=== PATIENT | male | born 1950 | race Caucasian/White ===

== ENCOUNTER → 2019-10-14 07:41 | Outpatient (CLI) | payer MEDICARE, OTHER, SELFPAY ==
--- NOTE | 2019-10-14 07:45 | CT_ITS ---
STUDY: CT SCAN OF THE LOWER EXTREMITY RIGHT REASON FOR EXAM: Male, 69 years old. RT KNEE OSTEOARTHRITIS, REBEKA RADIATION DOSAGE (If Supplied By Facility): CTDIvol = ( 38.00 ) mGy, DLP = ( 2291.97 ) mGycm. Individualized dose optimization techniques were used for this CT.? TECHNIQUE: Multiple axial tomographic images of the right hip joint, knee joint and right ankle were obtained without intravenous contrast administration. Sagittal and coronal reconstruction was obtained as well. COMPARISON: None. FINDINGS: Mild degree of osteoarthritis of the right hip joint. Small calcification overlying the greater trochanter most likely secondary to bursitis. Marked degree of the joint space narrowing with chondrocalcinosis of the medial compartment of the knee joint. No evidence of joint effusion. Mild degree of the joint space narrowing and chondrocalcinosis of the lateral compartment. The ankle joint is unremarkable. CT/Extremity Lower without Contra IMPRESSION: Marked degree of osteoarthritis and chondrocalcinosis of the medial compartment of the knee joint. Moderate degree of joint space narrowing with chondrocalcinosis of the lateral knee joint. No significant joint effusion is seen. Electronically Signed: Carloz Ferro, at 11:19 EST , Service support ,
== END ==
PROVIDERS: Referring Provider Orthopaedic Surgery; Visit Provider Orthopaedic Surgery
DX: M21.161 Varus deformity, not elsewhere classified, right knee (principal); M17.11 Unilateral primary osteoarthritis, right knee
CPT/HCPCS: 73700

== ENCOUNTER 2019-11-04 05:23 | Observation (INO) | payer MEDICARE, OTHER, SELFPAY ==
[2019-10-14 08:57] VITALS: BP 116/78; PULSE 69; RESP 16; TEMP 36.8; O2SAT 98; BMI 36.3
--- NOTE | 2019-10-14 09:42 | SDCEKG_ITS ---
Test Reason : Blood Pressure : / mmHG Vent. Rate : 070 BPM Atrial Rate : 070 BPM P-R Int : 210 ms QRS Dur : 092 ms QT Int : 382 ms P-R-T Axes : 045 024 031 degrees QTc Int : 412 ms Sinus rhythm with 1st degree A-V block Otherwise normal ECG Confirmed by SUZY CASAREZ, YULY ([id number]), rewrite editor ANNA GERARD ([id number]) on 10/16/2019 9:05:10 AM Referred By: Cortes Barlow Confirmed By:YULY ALMONTE MD
[2019-10-14 10:02] LABS: Absolute Lymphocyte Count 1.63 X10^3/uL (0.83-4.51); Absolute Neutrophil Count 5.3 X10^3/uL (2.0-7.7); Basophil# 0.04 X10^3/uL; Basophil% 0.5 % (0-1); Eosinophil# 0.11 X10^3/uL; Eosinophils% 1.4 % (0-5); Hematocrit 45.9 % (40-54); Hemoglobin 15.5 g/dL (13.0-16.5); Lymphocyte # 1.63 X10^3/ul (4.0); Lymphocyte % 20.5 % (19-41); Mean Corp Hgb Conc 33.8 g/dL (32-36); Mean Corpuscular Hgb 31.3 pg (27.0-32.0); Mean Corpuscular Volume 92.5 fL (80-94); Monocyte# 0.91 X10^3/uL; Monocyte% 11.4 % (0-10); NRBC Flagged by Analyzer 0 % (0-5); Neutrophil # 5.26 X10^3/uL (2.7-7.7); Neutrophil % 65.9 % (47-70); Platelet Count 251 K/mm3 (150-450); RBC Distribution Width CV 13.2 % (11.6-14.6); RBC Distribution Width SD 44.9 fl (35.1-43.9); Red Blood Count 4.96 M/mm3 (4.6-6.2)
[2019-10-14 10:05] LABS: Prothrombin Time (Protime)PT. 12.8 SECONDS (11.7-14.9)
[2019-10-14 10:06] LABS: Partial Thromboplast Time 28.2 Seconds (24.1-36.2)
[2019-10-14 10:25] LABS: AST(SGOT) 20 U/L (15-37); Alanine Aminotransfer ALT/SGPT 38 U/L (16-61); Albumin, Serum 3.9 g/dL (3.2-5.0); Alkaline Phosphatase 51 U/L (45-117); Anion Gap 5 (5-15); BUN 22 mg/dL (7-18); BUN/Creat Ratio 18.3 RATIO (10-20); Bilirubin, Direct 0.13 mg/dL (0.00-0.30); Calcium,Total 9.8 mg/dL (8.5-10.1); Chloride 107 mmol/L (98-107); EST Glomerular Filtration Rate 64 mL/min (>60); Est Glom Filt Rate - Afr Amer 78 mL/min (>60); Estimated Creatinine Clearance 59.73 ml/min; Globulin 3.7 g/dL (2.2-4.2); Glucose 120 mg/dL (74-106); Protein, Total 7.6 g/dL (6.4-8.2); Sodium Level 138 mmol/L (136-145)
[2019-10-14 10:26] LABS: Hemoglobin A1c 6.7 % (4.2-6.3)
[2019-11-04] VITALS (14 sets, daily range): BP systolic 86–128; BP diastolic 47–90; PULSE 56–80; RESP 16–18; TEMP 36.3–37.1; O2SAT 97–100; BMI 34.3
[2019-11-04] MEDS: Lactated Ringers 1,000 ML 100 ML IV ×3 (06:09→13:55)
[2019-11-04] MEDS: Acetaminophen 500 MG Tablet 1000 MG PO ×3 (06:10→22:25)
[2019-11-04] MEDS: Gabapentin 600 MG Tablet PO (06:10)
[2019-11-04 06:35] LABS: Bedside Glucose 259 mg/dL (70-110)
[2019-11-04] MEDS: Insulin Lispro 100 UNIT/ML INSULN.PEN SC (06:43)
[2019-11-04 06:44] LABS: Magnesium 1.8 mg/dL (1.6-2.6)
[2019-11-04] MEDS: Cefazolin 2 GM in 0.9% Normal Saline 100 ML IV (07:15)
--- NOTE | 2019-11-04 07:15 | KNEE_PTH ---
PATIENT: GENE MARC LOC: MS3 U#:[id number] AGE/SX: 69/M ROOM: MO324 RE11/04/[address]: Dr. Cortes Barlow DO : 1950 BED: 1 DIS: 11/05/2019 SPEC #: [id number] RECD: 11/04/19 10:30 STATUS: ROCCO RETorrie #: [id number] EN: 11/04/19 07:[address]: Cortes Barlow DEPT: SURGICAL PATHOLOGY RECD BY: Travis Remy ENTERED: 11/04/19 10:49 SP TYPE: TOTAL KNEE OTHR DR: Dr. Bree Baltazar, Tissues: Knee, NOS Procedures: Decalcification bone/plaque Surgery Specimen Level IV HEADER OPERATION: Total knee replacement, robotic arm assist PRE-OP DIAGNOSIS: Unilateral primary osteoarthritis right knee TISSUE SUBMITTED: Right knee bone MICROSCOPIC DIAGNOSIS Bone and soft tissue of right knee, total knee resection: Consistent with degenerative joint disease. Soft tissue with crystals consistent with pseudogout. AM:padmini 11/07/19 MICROSCOPIC DESCRIPTION Slides are reviewed. GROSS DESCRIPTION Received is one container designated bone and soft tissue right knee. The specimen consists of multiple fragments of altman-yellow bone measuring in aggregate 15 x 10 x 1 cm. Also in the specimen container are multiple fragments of yellow-white soft tissue measuring in aggregate 3 x 2 x 0.7 cm. The bony articular surfaces show eburnation and osteophyte formation. Senior Account Executive sections are submitted in two cassettes as follows: 1 - soft tissue, 2 - bone after decalcification. / AM:padmini 11/04/19 TC:5 CPT: 58915, 76939
--- NOTE | 2019-11-04 07:30 | RAD_ITS ---
EXAM DESCRIPTION: Right knee CLINICAL HISTORY: 69 years Male, post op right knee replacement COMPARISON: Previous CT scan of the right knee obtained on 10/14/2019 FINDINGS: Studies of the right knee in 2 projections shows a total right knee prosthesis in place in excellent anatomic position and alignment. RAD/Knee 1 or 2 Views IMPRESSION: A total right knee prosthesis is noted in good position and alignment. Electronically Signed: Hill Rodriguez, at 10:03 EST Tel , Service support ,
[2019-11-04 09:31] LABS: Bedside Glucose 97 mg/dL (70-110)
[2019-11-04 12:01] LABS: Bedside Glucose 146 mg/dL (70-110)
[2019-11-04] MEDS: Senna/Docusate Sodium 1 Tablet 2 TABLET PO ×2 (12:08→22:25)
[2019-11-04] MEDS: Aspirin 81 MG TAB.CHEW PO ×2 (12:08→18:30)
[2019-11-04] MEDS: Lisinopril 20 MG Tablet PO ×2 (12:09→22:25)
[2019-11-04] MEDS: metFORMIN HCl 500 MG Tablet PO (12:09)
[2019-11-04] MEDS: Multivitamins,Therapeutic Tablet 1 TABLET PO (12:09)
[2019-11-04] MEDS: hydroCHLOROthiazide 25 MG Tablet PO ×2 (12:09→22:26)
[2019-11-04] MEDS: oxyCODONE 5 MG Tablet PO ×2 (12:15→16:24)
--- NOTE | 2019-11-04 14:08 | PCM.OPRPT ---
Report of Operation Date of Procedure: 11/04/19 Pre-Operative Diagnosis: OA right knee Post-Operative Diagnosis: same Surgery/Procedure Performed:: Right TKR -- robotically assisted electronic commerce specialist: Shorty Silva Type of Anesthesia:: Spinal Anesthesiologist: Jeromy Bradley Estimated Blood Loss (mL): minimal - Admit VTE Documentation VTE Present on Admission: No VTE Mechan Device Prophylaxis: SCD's, Thigh High ALFREDO Hose VTE Pharm Prophylaxis ordered?: Yes
[2019-11-04] MEDS: Cefazolin 1 GM/50 ML BAG IV ×2 (15:06→22:25)
[2019-11-04 18:31] LABS: Bedside Glucose 90 mg/dL (70-110)
[2019-11-04] MEDS: Ensure Surgery 237 ML LIQUID PO (20:24)
[2019-11-04] MEDS: Atorvastatin Calcium 10 MG Tablet PO (22:25)
[2019-11-05] MEDS: Lactated Ringers 1,000 ML 100 ML IV (00:35)
[2019-11-05] MEDS: oxyCODONE 5 MG Tablet PO ×3 (03:13→13:02)
[2019-11-05 03:34] VITALS: BP 115/60; PULSE 76; RESP 18; TEMP 36.9; O2SAT 97
[2019-11-05] MEDS: Acetaminophen 500 MG Tablet 1000 MG PO ×2 (05:30→13:02)
[2019-11-05] MEDS: Ensure Surgery 237 ML LIQUID PO (05:30)
[2019-11-05 07:07] LABS: Hematocrit 40.7 % (40-54); Hemoglobin 13.4 g/dL (13.0-16.5); Mean Corp Hgb Conc 32.9 g/dL (32-36); Mean Corpuscular Hgb 31.1 pg (27.0-32.0); Mean Corpuscular Volume 94.4 fL (80-94); Mean Platelet Vol. 9.8 fl (6.2-12.0); Platelet Count 208 K/mm3 (150-450); RBC Distribution Width CV 13.4 % (11.6-14.6); RBC Distribution Width SD 46.6 fl (35.1-43.9); Red Blood Count 4.31 M/mm3 (4.6-6.2); White Blood Count 11.2 K/mm3 (4.4-11.0)
[2019-11-05 07:42] LABS: Anion Gap 7 (5-15); BUN 20 mg/dL (7-18); BUN/Creat Ratio 15.6 RATIO (10-20); Calcium,Total 8.9 mg/dL (8.5-10.1); Chloride 104 mmol/L (98-107); Creatinine, Serum 1.28 mg/dL (0.70-1.30); EST Glomerular Filtration Rate 60 mL/min (>60); Est Glom Filt Rate - Afr Amer 72 mL/min (>60); Estimated Creatinine Clearance 59.65 ml/min; Glucose 181 mg/dL (74-106); Potassium 4.1 mmol/L (3.5-5.1); Sodium Level 137 mmol/L (136-145)
--- NOTE | 2019-11-05 07:49 | PCM.PN.ORT ---
Subjective: Patient sitting at bedside eating breakfast. Patient states pain is very well managed. Patient denies chest pain, shortness breath, calf pain, nausea vomiting. Patient has no other complaints and states he is ready for discharge home. Patient states he will be doing his postop rehab at [facility] Objective: Dressing is clean dry intact. Negative signs and symptoms of DVT. Vital signs and labs all reviewed and are stable. Patient has good flexion-extension of the ankle and foot of the operative leg. Patient has limited motion of the knee secondary to pain. Patient is in no respiratory distress, speaking in full sentences. - Physical Exam Vitals/I&O's: Vital Signs Temp Pulse Resp BP Pulse Ox 98.5 F 76 18 115/60 97 11/05/19 03:34 11/05/19 03:34 11/05/19 03:34 11/05/19 03:34 11/05/19 03:34 Oxygen Delivery Method Room Air Weight: 111.7 kg Body Mass Index (BMI) 34.3 Finger Stick Blood Glucose 97 Intake and Output for Last 24 Hours 11/03/19 11/04/19 11/05/19 23:59 23:59 23:59 Intake Total 2821.67 / 2821.67 640 / 640 Output Total 360 / 360 450 / 450 Balance 2461.67 / 2461.67 190 / 190 General: Alert, Oriented x3, Cooperative HEENT: PERRLA Oral: Moist Mucosa Neurological: Cranial nerves II-XII grossly intact Psych/Mental Status: Normal Affect, Alert and oriented to time, place, person, mood and affect Laboratory Results 11/04/19 09:28: POC Glucose 97 11/04/19 11:58: POC Glucose 146 H 11/04/19 17:45: POC Glucose 90 11/05/19 06:46: WBC 11.2 H, RBC 4.31 L, Hgb 13.4, Hct 40.7, MCV 94.4 H, MCH 31.1, MCHC 32.9, RDW Std Deviation 46.6 H, RDW Coeff of Yancy 13.4, Plt Count 208, MPV 9.8 11/05/19 06:46: Sodium 137, Potassium 4.1, Chloride 104, Carbon Dioxide 26.0, Anion Gap 7, BUN 20 H, Creatinine 1.28, Estim Creat Clear Calc 59.65, Est GFR (MDRD) Af Amer 72, Est GFR (MDRD) Non-Af 60, BUN/Creatinine Ratio 15.6, Glucose 181 H, Calcium 8.9 Current Medications Acetaminophen (Tylenol) 1,000 mg PO Q8 [facility] Last Admin: 11/05/19 05:30 Dose: 1,000 mg Documented by: [facility]ir[facility] ([facility]in, Baby) [facility] Admin: 11/04/19 18:30 Dose: 81 mg Documented by: Atorvastatin Calcium (Lipitor) 10 mg PO QHS [facility] Last Admin: 11/04/19 22:25 Dose: 10 mg Documented by: Enteral Nutritional Formula (Ensure Surgery) 237 ml PO 0600,1300,2000 [facility] Last Admin: 11/05/19 05:30 Dose: 237 ml Documented by: Hydrochlorothiazide (Hctz) 25 mg PO BID [facility] Last Admin: 11/04/19 22:26 Dose: 25 mg Documented by: Sodium Chloride () 250 mls @ 15 mls/hr IV .[id number] PRN PRN Reason: Saline Flush Sodium Chloride () 250 mls @ 15 mls/hr IV .[id number] PRN PRN Reason: Additional IVPB Infusion Insulin Human Lispro (Humalog Kwikpen (Bkc)) 1 - 6 unit SC Q4H PRN PRN; Protocol PRN Reason: BG>/= 180, SEE PROTOCOL Last Admin: 11/04/19 06:43 Dose: 2 units Documented by: Lisinopril (Zestril) 20 mg PO BID [facility] Last Admin: 11/04/19 22:25 Dose: 20 mg Documented by: Metformin HCl (Glucophage) [facility] Last Admin: 11/04/19 12:09 Dose: 500 mg Documented by: Multivitamins (Multivitamin) 1 tablet PO DAILY@0800 [facility] Last Admin: 11/04/19 12:09 Dose: 1 tablet Documented by: Ondansetron HCl (Zofran) 4 mg IV Q8H PRN PRN PRN Reason: NAUSEA Oxycodone HCl (Oxyir) 5 - 10 mg PO Q4H PRN PRN PRN Reason: Pain Score 4-10/10 Last Admin: 11/05/19 07:35 Dose: 10 mg Documented by: Promethazine HCl (Phenergan) 12.5 mg IM Q6H PRN PRN; Protocol PRN Reason: NAUSEA/VOMITING Senna/Docusate Sodium (Senokot-S, Danielle-Colace) 2 tablet PO BID [facility] Last Admin: 11/04/19 22:25 Dose: 2 tablet Documented by: Sodium Chloride () 10 - 40 ml IV UD PRN PRN Reason: SALINE FLUSH Medical Necessity - Tobacco Use Smoking Status: Former smoker Assessment/Plan Status post right total knee arthroplasty Plan 1. Continue all pain medications as prescribed 2. Continue physical therapy, weight-bear as tolerated with walker 3. Aspirin 81 mg 1 p.o. every 12 hours x30 days for postop DVT prophylaxis 4. Encourage incentive spirometry 5. Discharge home today 6. Continue outpatient physical therapy at [facility] 7. Follow-up as scheduled, see pink sheet.
--- NOTE | 2019-11-05 08:01 | DCINST_ITS ---
Discharge Diet: No Restrictions Discharge Activity: May Not Drive, May Shower, Use Walker May shower in (days): 3 Ice area for (Minutes): 20 - each hour while awake. Weight Bearing Status: Weight bearing as tolerated Elevate: Operative Extremity Additional Activity Instructions:: Wear elastic stockings for 2 weeks after your surgery. Call your doctor if your incision/area has: Continuous Slow Oozing, Sudden Increased Bleeding, Increased Pain/ Swelling, Increased Redness, Foul Smelling Discharge Call your doctor if you observe: Fever of 101 or Higher, Coldness, Increased Pain - in extremity, Numbness or Tingling, Change in Color, Calf discomfort, Uncontrolled pain Change Dressing in (Days):: 1 - and daily as needed. Cleanse incision/area with: Soap & Water Allergies/Adverse Reactions: Allergies No Known Allergies Allergy (Verified 11/04/19 05:55) Medications to take at Discharge Cinnamon Bark [Cinnamon] 2,000 mg PO DAILY 10/14/19 Lisinopril/Hydrochlorothiazide [Lisinopril-Hctz 20-25 mg Tab] 1 ea PO BID 10/14/19 Metformin HCl 500 mg PO DAILY 10/14/19 Multivitamin [Multiple Vitamins] 1 ea PO DAILY 10/14/19 Simvastatin 20 mg PO QHS 10/14/19 Acetaminophen [Tylenol] 1,000 mg PO Q8 #90 tab 11/05/19 Aspirin [Aspirin, Baby] 81 mg PO BIDCM #60 tab.chew 11/05/19 Oxycodone [Oxyir] 5 - 10 mg PO Q4H PRN PRN 7 Days #84 tablet 11/05/19 The following prescriptions were given: Aspirin [Aspirin, Baby] 81 mg PO BIDCM #60 tab.chew Transmission Status: Pending to [facility]/pharmacy #[id number] Oxycodone [Oxyir] 5 - 10 mg PO Q4H PRN PRN 7 Days #84 tablet PRN Reason: Pain Score 4-10/10 Transmission Status: Received by [facility]pharm[facility] #[id number] Acetaminophen [Tylenol] 1,000 mg PO Q8 #90 tab Transmission Status: Pending to [id number] Primary Care Physician: Bree Baltazar DO [Primary Care Provider] - Test Results: Test results from this visit will be discussed in further detail at your follow- up appointment, if applicable. Please Follow Up With: Shorty Silva PA-C When: as scheduled see pink sheet
[2019-11-05] MEDS: Multivitamins,Therapeutic Tablet 1 TABLET PO (08:05)
[2019-11-05] MEDS: Aspirin 81 MG TAB.CHEW PO (08:05)
[2019-11-05] MEDS: metFORMIN HCl 500 MG Tablet PO (08:05)
[2019-11-05] MEDS: Senna/Docusate Sodium 1 Tablet 2 TABLET PO (08:12)
[2019-11-05] MEDS: hydroCHLOROthiazide 25 MG Tablet PO (08:13)
[2019-11-05] MEDS: Lisinopril 20 MG Tablet PO (08:13)
[2019-11-05 09:34] VITALS: BP 113/57; PULSE 87; RESP 18; TEMP 37; O2SAT 95
--- NOTE | 2019-11-05 10:40 | CASEMGMT ---
RN SHARON Face to Face with patient for initial transition planning/care coordination assessment. RN CM introduced self and role at [facility]. Patient sitting, alert and oriented. Patient willing to participate in assessment and is able to answer all questions appropriately. Care providers, pharmacy, and demographics verified. Patient wishes to discharge home and is scheduled for outpatient therapy at [facility]. Patient states he has no further needs or concerns at this time. CM to follow for discharge planning needs that may arise. PCP: Giovanny Specialists: ananda Barlow [facility] Insurance: [facility] Prescription Benefit: yes Living Will/HPOA: none LNOK: Living Arrangements: Patient lives with in 2 story house with first floor setup temporally. Patient independent at home prior to surgery. Transportation: DME/HHC: patient has shower chair, cane, walker, cpap at home. Outpatient therapy is setup for Monday at [facility]. Disposition Plan: Patient to discharge home with outpatient therapy, family support, and follow-up plans in place. Aundrea PLEITEZ, RN, CM
== END 2019-11-05 15:10 | disposition home or self-care (01) ==
LOC: MS3 11-05 09:35 → ACINP 11-05 09:51 → MS3 11-05 09:51
PROVIDERS: Anesthesiology; Admitting Provider Orthopaedic Surgery; Referring Provider Orthopaedic Surgery; Visit Provider Orthopaedic Surgery
PROC: 0SRC0JZ Replacement of Right Knee Joint with Synthetic Substitute, Open Approach (ICD-10-PCS; CPT 27447; principal; 2019-11-04 06:45)
DX: M17.11 Unilateral primary osteoarthritis, right knee (principal); I10 Essential (primary) hypertension; E78.00 Pure hypercholesterolemia, unspecified; G47.30 Sleep apnea, unspecified; E66.9 Obesity, unspecified; M21.161 Varus deformity, not elsewhere classified, right knee; Z68.35 Body mass index [BMI] 35.0-35.9, adult; Z71.3 Dietary counseling and surveillance; Z79.82 Long term (current) use of aspirin; Z79.84 Long term (current) use of oral hypoglycemic drugs; Z79.899 Other long term (current) drug therapy; Z87.891 Personal history of nicotine dependence; E11.9 Type 2 diabetes mellitus without complications; I44.0 Atrioventricular block, first degree
CPT/HCPCS: 01400; 27447; 64447; S2900; 36415; 73560; 80048; 80076; 82962; 83036; 83735; 85025; 85027; 85610; 85730; 87081; 88305; 88311; 93005; 96361; 96365; 96366; 97110; 97116; 97161; 97166; 97530; 97535; 99218; 99251; C1776; J7120; G0378; G0379; G0463

== ENCOUNTER → 2020-06-17 11:21 | Outpatient (CLI) | payer MEDICARE, OTHER, SELFPAY ==
[2019-11-04 11:09] VITALS: BMI 34.3
--- NOTE | 2020-06-17 11:26 | VDLE_ITS ---
Reason For Study: pain RIGHT GSV is normal. CFV is compressible, spontaneous, phasic, competent and demonstrates normal augmentation. FV is compressible, spontaneous, phasic, competent and demonstrates normal augmentation. POP V is compressible, spontaneous, phasic, competent and demonstrates normal augmentation. T/P Trunk is compressible. PTV is compressible. RT PerV is compressible. Procedure This is a venous duplex using B-mode, color flow and spectral Doppler. Exam performed in department. The exam was abbreviated due to the COVID 19 protocol. The exam was diagnostic. A preliminary report was called and/or faxed to [facility]. Interpretation Summary Deep veins of the right lower extremity are patent and compressible segmentally. There is no evidence of right lower extremity deep vein thrombosis. Valvular competence appears intact within the proximal deep venous system on the right . The right great saphenous vein appears patent and compressible segmentally. Ordering Physician: Cortes Barlow Performed By: Brant Pickett RVT
== END ==
PROVIDERS: Referring Provider Orthopaedic Surgery; Visit Provider Orthopaedic Surgery
DX: M79.604 Pain in right leg (principal)
CPT/HCPCS: 93971

== ENCOUNTER → 2021-03-30 | Outpatient (CLI) | payer MEDICARE, OTHER, SELFPAY ==
[2019-11-04 11:09] VITALS: BMI 34.3
--- NOTE | 2021-03-30 | IMM_PTH ---
PATIENT: GENE MARC LOC: MAN U#:[id number] AGE/SX: 71/M ROOM: RE03/30/[address]: Dr. Luis Dutta MD : 1950 BED: DIS: 03/30/2021 SPEC #: [id number] RECD: 04/01/21 12:58 STATUS: ROCCO REQ #: [id number] EN: 03/30/21 00:[address]: uLis Dutta DEPT: IMMUNOHISTOCHEMISTRY RECD BY: Tania Hills ENTERED: 04/01/21 12:59 SP TYPE: IMMUNO OTHR DR: Dr. Bree Baltazar DO Tissues: D - PROSTATE LEFT Procedures: P40 (add) 34BE12 (initial) PHYSICIAN & INSTITUTION [place] [id number] SPECIMEN INFORMATION: Tissue Source: D - Left prostate, apex, core biopsy Clinical Info: R97.20 Specimen Number: [id number] CPT code: 76296, 59389 METHODOLOGY: Deparaffinized sections of prefer/formalin-fixed tissue or PAP/DQ stained slides are incubated with monoclonal/polyclonal antibodies/oligonucleotide probes. Localization is made via biotin free immunoperoxidase method. Appropriate controls are performed and reacted as expected. Results on target cell population are indicated in the following table: RESULTS: ANTIBODY / CLONE RESULT Block D P40 (BC28) positive 34BE12 (34BE12) positive These tests were developed and their performance characteristics determined by [facility]. They may not have been cleared or approved by the U.S. Food and Drug Administration. The FDA has determined that such clearance or approval is not necessary. The above immunohistochemical/dualISH markers are ordered and reviewed by the Pathologist. INTERPRETATION: D. Left prostate, apex, core biopsy: Negative for malignancy. MAGDALENO:padmini 04/02/2021
--- NOTE | 2021-03-30 08:00 | PROSBIL_PTH ---
PATIENT: GENE MARC LOC: MAN U#:[id number] AGE/SX: 71/M ROOM: RE03/30/[address]: Dr. Luis Dutta MD : 1950 BED: DIS: 03/30/2021 SPEC #: [id number] RECD: 03/30/21 16:27 STATUS: ROCCO RETorrie #: [id number] EN: 03/30/21 08:[address]: Luis Dutta DEPT: SURGICAL PATHOLOGY RECD BY: Aria Mukherjee ENTERED: 03/31/21 09:28 SP TYPE: PROST BX EMMETT DR: Dr. Bree Baltazar, DO Tissues: A - PROSTATE RIGHT B - PROSTATE RIGHT C - PROSTATE RIGHT D - PROSTATE LEFT E - PROSTATE LEFT F - PROSTATE LEFT Procedures: PROSTATE BX HEADER OPERATION: Prostate biopsy PRE-OP DIAGNOSIS: R97.20 TISSUE SUBMITTED: A - Right apex, B - Right mid, C - Right base, D - Left apex, E - Left mid, F - Left base MICROSCOPIC DIAGNOSIS A. Right prostate, apex, core biopsy: Prostatic tissue, negative for malignancy. B. Right prostate, mid, core biopsy: Prostatic tissue, negative for malignancy. Focal mild chronic inflammation. C. Right prostate, base, core biopsy: Prostatic tissue, negative for malignancy. Focal basal cell hyperplasia. D. Left prostate, apex, core biopsy: Prostatic tissue, negative for malignancy. See comment. E. Left prostate, mid, core biopsy: Prostatic tissue, negative for malignancy. Focal mild to moderate chronic inflammation. F. Left prostate, base, core biopsy: Prostatic tissue, negative for malignancy. Focal mild chronic inflammation. SJ:padmini 04/01/2021 COMMENT D. Immunohistochemistry ([id number]) supports the above diagnosis. Case has been reviewed in consultation with Dr. Santos who concurs with the above diagnosis. IDC:AM MICROSCOPIC DESCRIPTION Slides are reviewed. GROSS DESCRIPTION A - Received is one container designated prostate, right apex. The specimen consists of one elongated fragment of light altman-white soft tissue measuring 0.7 cm in length and 0.1 cm in diameter. The specimen is totally submitted in one cassette. B - Received is one container designated prostate, right mid. The specimen consists of one elongated fragment of light altman-white soft tissue measuring 1.5 cm in length and 0.1 cm in diameter. The specimen is totally submitted in one cassette. C - Received is one container designated prostate, right base. The specimen consists of two elongated fragments of light altman-white soft tissue measuring 0.5 and 0.6 cm in length and 0.1 cm in diameter. The specimen is totally submitted in one cassette. D - Received is one container designated prostate, left apex. The specimen consists of one elongated fragment of light altman-white soft tissue measuring 0.8 cm in length and 0.1 cm in diameter. The specimen is totally submitted in one cassette. E - Received is one container designated prostate, left mid. The specimen consists of one elongated fragment of light altman-white soft tissue measuring 0.9 cm in length and 0.1 cm in diameter. The specimen is totally submitted in one cassette. F - Received is one container designated prostate, left base. The specimen consists of one elongated fragment of light altman-white soft tissue measuring 1 cm in length and 0.1 cm in diameter. The specimen is totally submitted in one cassette. / SJ:rg 03/31/21 TC:3 CPT: G0146
== END | disposition home or self-care (01) ==
LOC: LABSPEC 16:38
PROVIDERS: Referring Provider Urology; Visit Provider Urology
DX: R97.20 Elevated prostate specific antigen [PSA] (principal)
CPT/HCPCS: 88305; 88341; 88342; G0416

== ENCOUNTER → 2022-02-22 | Outpatient (CLI) | payer MEDICARE, OTHER, SELFPAY ==
--- NOTE | 2022-02-22 07:55 | CT_ITS ---
STUDY: CT SCAN LOWER EXTREMITY LEFT REASON FOR EXAM: Male, 71 years old. UNILATERAL PRIMARY OSTEOARTHRITIS LEFT KNEE FOR REPLACEMENT RADIATION DOSAGE (If Supplied By Facility): CTDIvol = ( 18.76 ) mGy, DLP = ( 1541.40 ) mGycm. Individualized dose optimization techniques were used for this CT.?REBEKA protocol. TECHNIQUE: Multiple axial tomographic images of the hip joint, knee joint and ankle joint were obtained. Coronal and sagittal reconstruction was obtained as well. COMPARISON: None. FINDINGS: Imaging of the left hip joint was obtained. There is a mild degree of joint space narrowing. Marked degree of joint space narrowing of the medial compartment of the knee joint. Degenerative spur formation is seen along the distal medial femoral condyle. This evidence of chondrocalcinosis. Tiny joint effusion. Vascular calcification. Imaging of the ankle joint was obtained. No significant abnormality is seen. CT/Extremity Lower without Contra IMPRESSION: Moderate degree of joint space narrowing of the medial compartment of the knee joint with degenerative spur formation of the distal medial femoral condyle. Tiny joint effusion. Electronically Signed: Carloz Ferro MD at 9:25 EDT ,
== END | disposition home or self-care (01) ==
LOC: CT 07:48
PROVIDERS: Visit Provider Orthopaedic Surgery
DX: M17.12 Unilateral primary osteoarthritis, left knee (principal)
CPT/HCPCS: 73700

== ENCOUNTER 2022-03-07 05:22 | Day surgery (SDC) | payer MEDICARE, OTHER, SELFPAY ==
--- NOTE | 2022-02-25 07:51 | EKG12_ITS ---
Test Reason : PREOP Blood Pressure : / mmHG Vent. Rate : 090 BPM Atrial Rate : 090 BPM P-R Int : 202 ms QRS Dur : 078 ms QT Int : 340 ms P-R-T Axes : 031 018 037 degrees QTc Int : 415 ms Normal sinus rhythm Normal ECG Confirmed by SUZY CASAREZ, YULY ([id number]), sports editor ANNA GERARD ([id number]) on 02/25/2022 12:46:30 PM Referred By: Cortes Barlow Confirmed By:YULY ALMONTE MD
[2022-02-25 09:00] LABS: Absolute Lymphocyte Count 2.34 X10^3/uL (0.83-4.51); Absolute Neutrophil Count 5.6 X10^3/uL (2.0-7.7); Basophil# 0.06 X10^3/uL; Basophil% 0.7 % (0-1); Eosinophil# 0.17 X10^3/uL; Eosinophils% 1.9 % (0-5); Hematocrit 44.5 % (40-54); Hemoglobin 15.1 g/dL (13.0-16.5); Lymphocyte # 2.34 X10^3/ul (0.83-4.51); Lymphocyte % 25.9 % (19-41); Mean Corp Hgb Conc 33.9 g/dL (32-36); Mean Corpuscular Hgb 31.9 pg (27.0-32.0); Mean Corpuscular Volume 94.1 fL (80-94); Mean Platelet Vol. 10.6 fl (6.2-12.0); Monocyte# 0.84 X10^3/uL; Monocyte% 9.3 % (0-10); NRBC Flagged by Analyzer 0 % (0-5); Neutrophil # 5.58 X10^3/uL (2.7-7.7); Neutrophil % 61.9 % (47-70); Platelet Count 272 K/mm3 (150-450); RBC Distribution Width CV 13.7 % (11.6-14.6); RBC Distribution Width SD 47.5 fl (35.1-43.9); Red Blood Count 4.73 M/mm3 (4.6-6.2)
[2022-02-25 09:15] LABS: Hemoglobin A1c 6.7 % (3.8-5.6)
[2022-02-25 09:22] LABS: Anion Gap 8 (5-15); BUN 24 mg/dL (7-18); BUN/Creat Ratio 17.8 RATIO (10-20); Chloride 105 mmol/L (98-107); Creatinine, Serum 1.35 mg/dL (0.70-1.30); EST Glomerular Filtration Rate 56 mL/min (>60); Est Glom Filt Rate - Afr Amer 67 mL/min (>60); Glucose 143 mg/dL (74-106); Magnesium 1.5 mg/dL (1.6-2.6); Potassium 4.4 mmol/L (3.5-5.1); Sodium Level 137 mmol/L (136-145)
[2022-03-07] VITALS (13 sets, daily range): BP systolic 128–155; BP diastolic 56–80; PULSE 77–93; RESP 15–16; TEMP 36.4–37; O2SAT 91–99; BMI 36.1
[2022-03-07] MEDS: Magnesium 2 GM IV (06:30)
[2022-03-07] MEDS: Acetaminophen 500 MG Tablet 1000 MG PO (06:36)
[2022-03-07] MEDS: Gabapentin 600 MG Tablet PO (06:36)
[2022-03-07] MEDS: Lactated Ringers 1,000 ML 15 ML IV (06:40)
[2022-03-07] MEDS: Insulin Lispro 100 UNIT/ML INSULN.PEN SC (07:29)
--- NOTE | 2022-03-07 07:30 | KNEE_PTH ---
PATIENT: GENE MARC LOC: [facility] [place] U#:[id number] AGE/SX: 71/M ROOM: RE03/07/[address]: Dr. Cortes Barlow DO : 1950 BED: DIS: 03/07/2022 SPEC #: [id number] RECD: 03/07/22 09:39 STATUS: ROCCO RETorrie #: [id number] EN: 03/07/22 07:[address]: Cortes Barlow DEPT: SURGICAL PATHOLOGY RECD BY: Anusha Macias ENTERED: 03/07/22 10:44 SP TYPE: TOTAL KNEE OTHR DR: Dr. Bree Baltazar, Tissues: Knee, NOS Procedures: Decalcification bone/plaque Surgery Specimen Level IV HEADER OPERATION: ERAS, total knee replacement robotic arm assist PRE-OP DIAGNOSIS: Varus deformity, left knee TISSUE SUBMITTED: Bone and tissue left knee MICROSCOPIC DIAGNOSIS Bone and soft tissue, left knee, total knee replacement/resection: Pieces of bone with degenerative osteoarthritic changes. Fibroadipose tissue, fibroconnective tissue and reactive synovial tissue. Focal changes consistent with pseudogout. MAGDALENO:padmini 03/09/2022 MICROSCOPIC DESCRIPTION Slides are reviewed. GROSS DESCRIPTION Received is one container designated bone and soft tissue left knee. The specimen consists of multiple fragments of altman-yellow bone measuring in aggregate 10 x 9 x 3.5 cm. Also in the specimen container are multiple fragments of cartilaginous tissue measuring in aggregate 6 x 4 x 1.5 cm. A number of bony fragments contain articular surfaces consistent with tibial plateau and femoral condyle and displaying prominent osteophyte formation and bone erosion. Baggage Screener sections are submitted in two cassettes as follows: 1 - soft tissue, 2 - bone after decalcification. / MAGDALENO:padmini 03/07/2022 TC:5 CPT: 91455, 72396
[2022-03-07] MEDS: Cefazolin 2 GM in 0.9% Normal Saline 100 ML IV (07:43)
--- NOTE | 2022-03-07 07:43 | RAD_ITS ---
STUDY: XR Knee 1 or 2 Views 03/07/2022 4:48 PM REASON FOR EXAM: Male, 71 years old. post-op TKR -- in PACU TECHNIQUE: XR Knee 1 or 2 Views LEFT COMPARISON: None FINDINGS: There is no fracture or dislocation. There is anatomic alignment. Total knee arthroplasty. Soft tissue edema. Skin darrell are seen along the anterior midline aspect of the knee. There is an air-fluid level seen in the suprapatellar region. Joint space is preserved. Subcutaneous air is noted. There are atherosclerotic vascular calcifications. RAD/Knee 1 or 2 Views IMPRESSION: Successful total knee arthroplasty. Electronically Signed: Freddie Banegas MD at 16:49 EDT ,
[2022-03-07 07:50] LABS: Bedside Glucose 239 mg/dL (74-106)
[2022-03-07] MEDS: TXA 1000mg in NS100 100ml (IVPB at Incision) 660 MG IV (07:53)
[2022-03-07] MEDS: TXA 1000mg in NS100 100ml (IVPB at Closure) 660 MG IV (08:53)
--- NOTE | 2022-03-07 09:17 | PCM.OPRPT ---
Report of Operation Date of Procedure: 03/07/22 Pre-Operative Diagnosis: OA Left knee Post-Operative Diagnosis: same Surgery/Procedure Performed:: left TKR Description of Surgical Findings:: Report of Operation Date of Procedure: 05/07/2022 Preoperative Diagnosis: [left] knee primary osteoarthritis Postoperative Diagnosis: [left ] knee primary osteoarthritis Operation: Robotic Assisted Knee Total Arthroplasty, [left ] knee Surgeon: Dr Cortes Barlow DO Bear Keeper: Shorty Silva PA-C Anesthesia: spinal Anesthesiologist: Ty Joseph M.D. Findings: Stable knee with good patella tracking Specimen(s): Bony cuts Complications: No intraoperative complications Estimated Blood Loss:20 cc IV Fluids: 1000 cc crystalloid Implants Used: 1. [employer] Tri[employer] size 4 press-fit CR femur 2. [place] [employer] size 5 tibia 3. 35 mm patella 4. 11 mm Cs polyethylene Brief History Operative Indications: [ (71 y/o male) ] with history of [ left ] knee osteoarthrosis with radiographic findings with loss of joint space, osteophyte formation and subchondral sclerosis. Failed conservative measures as mentioned in the H&P. Discussion of total knee arthroplasty as well as risk and benefits were discussed with the patient including but not limited to blood loss, DVTs, PEs, neurovascular damage, general risk of anesthesia including loss of life, and stiffness or instability were also discussed with the patient. Patient demonstrated understanding and was able to sign informed consent. Procedure: On the date of procedure, patient's [left ] lower extremity was marked in the preoperative area. The patient was then taken back to the operating room where that patient was placed on the table in the supine position. All bony prominences were identified and well-padded. Anesthesia assumed control of the C-spine and airway throughout the remainder of the procedure. A tourniquet was placed on the [left ] upper thigh and the leg was prepped in a sterile fashion. The surgeon then scrubbed at this time. Upon reentering the room, the [ left ] lower extremity was draped in a standard orthopedic fashion. A timeout was then called and everyone agreed upon the side, the site, the procedure to be performed, patient's identity and antibiotics given. Esmarch bandage was used to exsanguinate the extremity and the tourniquet was placed up to 250 mmHg with the knee in flexion. A midline skin incision was made and a sharp dissection was taken down through skin, subcutaneous tissue and fat. The standard medial parapatellar incision was made and the patella was subluxed laterally. An appropriate deep MCL release was done and the fat pad was resected. Our attention was then directed to the patella. The patella was everted and a flat resection was made. The knee was then flexed up and 2 femoral pins were placed inside the incision and 2 tibial pins were placed outside the incision in the medial tibia bicortically. Once this was completed, the 2 checkpoints in the femur and tibia were placed. Knee was then flexed up and the bony landmarks were registered. Once the was completed, the knee taken through range of motion and manually stressed allowing us to plan for an appropriate tibial cut. The robotic arm was brought into the field sterilely and checkpoint and saw were registered. Based on the patient's deformity, the tibial cut was made in [1 degree varus ]. At this time, the tensioner was then placed in the joint and ligament tension was checked at 90 degrees and full extension. Based on the patient's ligamentous tension, appropriate adjustments were made to the operative plan and ligament releases were done. Once we were happy with our operative plan with balanced flexion and extension gaps, our attention was directed to the femur. The robot was brought into the field sterilely and registered. Posterior condylar cuts, anterior chamfer cuts and anterior cuts were appropriately made for a [size 4 ] femur. When these were completed, the saws were switched out in the distal femoral and posterior chamfer cuts were made. Protecting the soft tissue throughout this time. A [ size 5 ] base plate was selected. The knee was flexed to 90 degrees and soft tissues and posterior osteophytes were removed from the joint. 40 cc of the periarticular injection was injected into the posterior medial corner of the joint. The appropriate trials were then placed on the femur and tibia. A trial polyethylene was trialed to ensure proper balancing and stability of the knee. The appropriate tibial internal rotation was then marked with a bovie. Our attention was then directed to the patella. The lug holes were drilled and the patella trial was placed. Patellar tracking was checked and deemed appropriate. Once we were happy, lug holes were drilled for the femur and trial components were removed. The tibia was subluxed and pinned into place and the keel was punched and drilled appropriately. Final components were verified and opened. The wound was copiously irrigated with normal saline. The components were impacted into place with the tibia, femur and finally the patella. The trial poly component was placed and the knee was placed in full extension. The tracking, alignment and balance were verified and a [ 11 mm CS ] polyethylene component was placed. Once the final components were placed an Irrisept lavage was performed and the wound was copiously irrigated with normal saline solution and the periarticular injection was given. the wound was closed in a layer-rocha fashion using #1 vicryl interrupted sutures for the arthrotomy, 2-0 interrupted vicryl suture for the subcuticular layer and darrell for final skin closure. A sterile compressive dressing was then placed. The patient was then awakened from anesthesia, transferred to the [facility] [place] and transferred to the PACU for recovery. My physician sales office assistant was a vital part of this case. He was important in appropriate retraction during the case, and protection of soft tissues during bony cuts. His intimate knowledge of the case and my steps aided in safe and expedient completion of the procedure as well as appropriate position of the leg during the case. He was also vital in assisting with closure under my direct supervision. Due to the complexity of this case, robotic arm was used to assist in the surgery to improve accuracy and clinical outcomes. Post-op Plan: DVT ppx; ASA 81 mg BID, thigh high compression stockings Follow up: in office in 2 weeks for wound check PT: to start POD #0 at hospital, outpatient PT should be arranged. Preoperative antibiotic: Ancef 2 grams IV Cortes Barlow DO Surgeon: Cortes Barlow manufacturing lead: Shorty Silva Type of Anesthesia: Spinal Anesthesiologist: Ty Joseph Estimated Blood Loss (mL): 20 cc Fluids Replaced: 1000 cc crystalloid Admit VTE Documentation VTE Present on Admission: No VTE Mechan Device Prophylaxis: SCD's and Thigh High ALFREDO Hose VTE Pharm Prophylaxis ordered?: Yes
[2022-03-07 10:11] LABS: Bedside Glucose 227 mg/dL (74-106)
[2022-03-07] MEDS: Lactated Ringers 1,000 ML 999 ML IV (11:01)
[2022-03-07] MEDS: Lactated Ringers 1,000 ML 125 ML IV (11:02)
[2022-03-07] MEDS: oxyCODONE 5 MG Tablet PO ×2 (11:28→12:58)
--- NOTE | 2022-03-07 12:59 | SUR.PHASEII ---
ready for PT
== END 2022-03-07 14:10 | disposition home or self-care (01) ==
LOC: SDC 05:22 → AC 05:23
PROVIDERS: Anesthesiology; Referring Provider Orthopaedic Surgery; Visit Provider Orthopaedic Surgery
PROC: 0SRD0JZ Replacement of Left Knee Joint with Synthetic Substitute, Open Approach (ICD-10-PCS; CPT 27447; principal; 2022-03-07 07:00)
DX: M21.162 Varus deformity, not elsewhere classified, left knee (principal); E11.9 Type 2 diabetes mellitus without complications; M17.12 Unilateral primary osteoarthritis, left knee; F32.A Depression, unspecified; I10 Essential (primary) hypertension; E78.00 Pure hypercholesterolemia, unspecified; G47.30 Sleep apnea, unspecified; Z87.891 Personal history of nicotine dependence; E66.9 Obesity, unspecified; Z68.37 Body mass index [BMI] 37.0-37.9, adult; Z79.82 Long term (current) use of aspirin; Z79.84 Long term (current) use of oral hypoglycemic drugs; Z79.899 Other long term (current) drug therapy
CPT/HCPCS: 27447; 01402; S2900; 36415; 73560; 80048; 82040; 82962; 83036; 83735; 85025; 87081; 88305; 88311; 93005; 97162; C1776; J7120; J2405

== ENCOUNTER 2022-07-25 07:16 | Outpatient (CLI) | payer MEDICARE, OTHER, SELFPAY ==
--- NOTE | 2022-07-25 07:29 | MRI_ITS ---
STUDY: MRI LEFT KNEE REASON FOR EXAM: Male, 72 years old. History of left total knee arthroplasty March 07, 2022. Pain never improved after surgery. TECHNIQUE: Standardized fat and water weighted pulse sequences were obtained in all 3 orthogonal planes. Extremely limited diagnostic information due to the substantial metallic artifact from the total knee arthroplasty. COMPARISON: Left knee images dated March 07, 2022. FINDINGS: Total knee arthroplasty with near complete obliteration of signal of the knee. Extensive metallic artifact medially, laterally and at the patellofemoral compartment. No diagnostic information is available regarding the distal femur, proximal tibia or patella. Mild distal quadriceps tendinosis. Mild distal patellar tendinosis. Obliteration of Hoffa''s fat pad by metallic artifact. Slight thickening of the posterior cruciate ligament (sagittal series 3 image 12). Small joint effusion. MRI/Lower Ext Joint Only (Routine) IMPRESSION: Extremely limited information due to the extensive metallic artifact from the 3 component total knee arthroplasty. See discussion above. An alternative study, if further information is required clinically, would be a CT arthrogram as there would be less artifact from the arthroplasty. Electronically Signed: Shorty Rizo, at 9:39 EST ,
== END 2022-07-25 23:59 | disposition home or self-care (01) ==
LOC: MRI 07:17
PROVIDERS: Referring Provider Orthopaedic Surgery; Visit Provider Orthopaedic Surgery
DX: Z96.652 Presence of left artificial knee joint (principal)
CPT/HCPCS: 73721

== ENCOUNTER → 2024-07-25 | Outpatient (CLI) | payer MEDICARE, OTHER, SELFPAY | END | disposition home or self-care (01) | PROVIDERS: Referring Provider Dermatology; Visit Provider Dermatology | DX: L02.222 Furuncle of back [any part, except buttock and flank] (principal) | CPT/HCPCS: 86695; 86696; 87070; 87205 ==